=== PATIENT | female | born 1970 | race Caucasian/White ===

== ENCOUNTER 2020-02-03 11:33 | Outpatient (CLI) | payer OTHER, SELFPAY ==
--- NOTE | ~2020-02-03 | MM_ITS ---
EXAMINATION: MM screening nasir BI w darlene HISTORY: Screening TECHNIQUE: Craniocaudal and mediolateral oblique 3-D tomosynthesis images were obtained and synthetic 2-D images were generated. CAD analysis was submitted and interpreted. COMPARISON: Comparison to multiple prior studies sequentially, with oldest reviewed study dated 04/2013. BREAST PARENCHYMAL COMPOSITION: There are scattered areas of fibroglandular density. FINDINGS: There is no evidence of suspicious mass, calcification, or architectural distortion to sugg est malignancy in either breast. There has been no suspicious interval change. IMPRESSION: 1. No mammographic evidence of malignancy. 2. Recommend routine screening mammography in one year. BI-RADS Category 1: Negative Reviewed, dictated and finalized at location A. EACH ANALYST
== END 2020-02-03 11:34 | disposition home or self-care (01) ==
PROVIDERS: PCP Internal Medicine; Visit Provider Obstetrics & Gynecology
DX: Z12.31 Encounter for screening mammogram for malignant neoplasm of breast (principal)
CPT/HCPCS: 77063; 77067

== ENCOUNTER → 2020-06-22 00:37 | Outpatient (CLI) | payer OTHER, SELFPAY ==
[2020-06-22 20:53] LABS: SARS-CoV-2 RNA PCR Negative
== END ==
PROVIDERS: PCP Internal Medicine; Visit Provider Internal Medicine Gastroenterology
DX: Z01.812 Encounter for preprocedural laboratory examination (principal); Z20.822 Contact with and (suspected) exposure to COVID-19
CPT/HCPCS: C9803; U0003; U0005

== ENCOUNTER 2020-06-26 04:29 | Day surgery (SDC) | payer OTHER, SELFPAY ==
[2020-06-13 12:40] VITALS: BMI 30.8
[2020-06-26 06:55] VITALS: BP 151/112; PULSE 104; RESP 20; TEMP 36.4; O2SAT 97; BMI 35.4
[2020-06-26] MEDS: LACTATED RINGERS 1,000 ML 150 ML IV CONT (07:09)
--- NOTE | 2020-06-26 07:33 | WPDANESEPPF ---
Anes - Initial Pre Proc Eval Procedure: Operation Date: 06/26/20 08:00 Proposed Procedures p Esophagogastroduodenoscopy & Colonoscopy - Dago Mejia MD Date/Time: 06/26/20 07:33 Surgeon: Dago Mejia MD Pre Op Diagnosis: melena, GERD Patient Data Age: 50 Gender: F Height: 5 ft 5 in Weight: 96.4 kg Last Vital Signs Temp 97.6 F 06/26/20 06:55 Pulse 104 H 06/26/20 06:55 Resp 20 06/26/20 06:55 BP 151/112 H 06/26/20 06:55 Pulse Ox 97 06/26/20 06:55 Allergies Allergy/AdvReac Type Severity Reaction Status Date / Time erythromycin base Allergy Mild Unknown Verified 06/26/20 06:53 grass pollen Allergy Mild Unknown Verified 06/26/20 06:53 pollen extracts Allergy Mild Unknown Verified 06/26/20 06:53 Home Medications Medication Instructions Recorded Confirmed Type cetirizine 10 mg tablet 10 mg PO DAILY 09/28/19 06/26/20 History norethindrone 1 mg-ethinyl 1 tablet PO DAILY 09/28/19 06/26/20 History estradiol 20 mcg (21)-iron 75 mg (7) tablet lisinopril 10 mg tablet 10 mg PO DAILY #90 tablet 01/03/20 06/26/20 Rx pantoprazole 40 mg tablet,delayed 40 mg PO QAM #90 tablet 05/10/20 06/26/20 Rx release sod picosulf 10 mg-magnes 3.5 160 ml PO BID #160 ml 05/16/20 Rx gram-citric 12 gram/160 mL oral solution Patient hx anesthesia problems: none Family hx anesthesia problems: none PMFSH Past Medical History Medical History (Updated 06/26/20 @ 07:34 by Jl Sofia MD) GERD (gastroesophageal reflux disease) Hypertension Hypothyroidism Family History Family History Other Carcinoma of colon Family history of lung cancer Social History Social History Smoking status: Never smoker Alcohol intake: never Substance use: never Substance use type: does not use Living arrangements: with family Gender identity (if verbalized by the patient): Female Spiritual care concerns: No Anes - Eval Final PreProcedure Day of Procedure 06/26/20 07:33 Patient weight: obese Heart: regular rate and rhythm Lungs: clear to auscultation Airway: Mallampati scale class II Neurological: alert and oriented Last oral intake: >/= 8 hours ASA classification: III Emergent: no Anesthetic plan: proceed Anesthesia type and monitoring: general GIVS and standard monitoring Informed Consent: The patient's anesthetic plan and its attendant risks and benefits were discussed with the patient/family/POA. Questions were solicited and answers provided to the satisfaction of the patient/family/POA.
--- NOTE | 2020-06-26 07:53 | PM.HPGS ---
History of Present Illness History of Present Illness Consent: Risks, benefits, and alternatives have been discussed and questions answered. Patient agrees to proceed with procedure. Chief complaint: melena, GERD Narrative: Mandi Carver is a 50 year old female with gerd (never had egd) and also needs screening colonoscopy (maternal grandmother with colon ca) Review of Systems Constitutional: Constitutional: Denies headache(s) and Denies weakness Eyes: Eyes: Denies blurry vision ENT: Reports Normal hearing present, Denies headache(s) and Denies neck pain Cardiovascular: Cardiovascular: Denies chest pain and Denies dyspnea Respiratory: Respiratory: Denies dyspnea Gastrointestinal: Gastrointestinal: Reports no additional gastrointestinal complaints Genitourinary: Genitourinary: Denies dysuria Musculoskeletal: Musculoskeletal: Denies neck pain Integumentary/Breasts: Skin/Breast: Denies dry skin Neurologic: Reports Normal hearing present, Denies headache(s) and Denies weakness Psychiatric: Psychiatric: Denies anxiety Endocrine: Endocrine: Denies change in body appearance Hematologic/Lymphatic: Hematologic/Lymphatic: Denies easy bleeding Allergic/Immunologic: Allergic/Immunologic: Denies urticaria PMFSH Past Medical History Medical History (Updated 06/26/20 @ 07:34 by Jl Sofia MD) GERD (gastroesophageal reflux disease) Hypertension Hypothyroidism Family History Family History Other Carcinoma of colon Family history of lung cancer Social History Social History Smoking status: Never smoker Alcohol intake: never Substance use: never Substance use type: does not use Living arrangements: with family Gender identity (if verbalized by the patient): Female Spiritual care concerns: No Meds Home Medications and Allergies Home Medications Medication Instructions Recorded Confirmed Type cetirizine 10 mg tablet 10 mg PO DAILY 09/28/19 06/26/20 History norethindrone 1 mg-ethinyl 1 tablet PO DAILY 09/28/19 06/26/20 History estradiol 20 mcg (21)-iron 75 mg (7) tablet lisinopril 10 mg tablet 10 mg PO DAILY #90 tablet 01/03/20 06/26/20 Rx pantoprazole 40 mg tablet,delayed 40 mg PO QAM #90 tablet 05/10/20 06/26/20 Rx release sod picosulf 10 mg-magnes 3.5 160 ml PO BID #160 ml 05/16/20 Rx gram-citric 12 gram/160 mL oral solution Allergies Allergy/AdvReac Type Severity Reaction Status Date / Time erythromycin base Allergy Mild Unknown Verified 06/26/20 06:53 grass pollen Allergy Mild Unknown Verified 06/26/20 06:53 pollen extracts Allergy Mild Unknown Verified 06/26/20 06:53 Vital Signs Vital Signs - 24 hr 06/26/20 06:55 Temperature 97.6 F Pulse Rate 104 H Respiratory Rate 20 Blood Pressure 151/112 H Pulse Oximetry 97 Exam Const: General: comfortable and no acute distress HENMT: General nose exam: Normal nares present Eyes: General: appearance normal, both eyes and all related structures Neck: Neck: no JVD Resp: Auscultation: clear to auscultation bilaterally Cardio: Rate: regular rate Rhythm: regular rhythm GI: Inspection: non-distended GI Palp: Yes Soft to palpation Skin: General skin exam: normal color Neuro: General: gait normal Speech: normal speech Extrem: General: normal to inspection Psych: Mental Status: mental status grossly normal Assessment and Plan Assessment and plan (1) Esophageal reflux disease: Code(s): K21.9 - Gastro-esophageal reflux disease without esophagitis Status: Acute Assessment and Plan: egd with bx (2) Family hx of colon cancer: Code(s): Z80.0 - Family history of malignant neoplasm of digestive organs Status: Acute Assessment and Plan: colonoscopy
[2020-06-26] MEDS: BENZOCAINE (*SP) 60 ML SPRAY CAN (HURRICAINE) 1 SPRAY MUCOUS MEM (08:02)
[2020-06-26 08:27] VITALS: BP 128/88; PULSE 96; RESP 37; O2SAT 99
[2020-06-26 08:37] VITALS: BP 146/98; PULSE 88; RESP 18; O2SAT 100
[2020-06-26 08:47] VITALS: BP 147/106; PULSE 94; RESP 20; O2SAT 100
--- NOTE | 2020-06-26 08:51 | SUR.PHASEII ---
Notified Dr. Sofia (anesthesiologist) of blood pressure 147/106. Pt states she took her lisinopril last night and does not monitor blood pressure at home. Orders to instruct pt to follow up with primary care physician.
== END 2020-06-26 08:58 | disposition home or self-care (01) ==
PROVIDERS: PCP Internal Medicine; Visit Provider Internal Medicine Gastroenterology
PROC: 0DJ08ZZ Inspection of Upper Intestinal Tract, Via Natural or Artificial Opening Endoscopic (ICD-10-PCS; CPT 43235; principal; 2020-06-26 08:00)
DX: Z12.11 Encounter for screening for malignant neoplasm of colon (principal); K57.30 Diverticulosis of large intestine without perforation or abscess without bleeding; K64.8 Other hemorrhoids; K29.50 Unspecified chronic gastritis without bleeding; K21.9 Gastro-esophageal reflux disease without esophagitis; Z80.0 Family history of malignant neoplasm of digestive organs; I10 Essential (primary) hypertension; E03.9 Hypothyroidism, unspecified; E66.9 Obesity, unspecified; Z68.35 Body mass index [BMI] 35.0-35.9, adult
CPT/HCPCS: 43239; G0121; 88305; 88342; C9803; J2704; J7120; U0003; U0005

== ENCOUNTER 2020-10-11 13:47 | Outpatient (CLI) | payer OTHER, SELFPAY ==
--- NOTE | 2020-11-06 21:46 | WPDHOMESLEEP ---
Sleep Study - Home Unattended Date of Study: 10/11/20 Ordering Provider: Lavell Loera PA-C Interpreting Provider: Yesenia Sampson MD Home Sleep Study Type: Apnea Link Air Height: 1.65 m Weight: 90.718 kg Body Mass Index: 33.3 Neck Circumference (inches): 15 [place]: 11 Reason for Sleep Study hypersomnia Sleep History Mandi Carver is a 50 year old female who has excessive snoring which has gotten worse over time. Her sleeps in a separate room due to her snoring. She had a colonoscopy recently was told by the anesthesiologist that the snoring was severe and that the patient needed a sleep study. She wakes up throughout the night and has excessive daytime sleepiness she does not awaken from sleep feeling short of breath. She occasionally awakens at night with heartburn, belching or coughing. She constantly snores loudly and constantly has trouble sleeping with a cold. She does not wake up gasping for breath at night. Occasionally she sweats excessively at night. She does not notice her heart pounding or beating irregularly at night. She occasionally falls asleep during the day, never involuntarily and never while driving. She does not have loss of muscle tone with strong emotion. She occasionally has daytime difficulties due to excessive sleepiness. She is an accountant bookkeeper. She does not feel paralyzed on waking or falling asleep and does not have vivid dreamlike scenes upon awakening or falling asleep. she does not feel afraid to go to sleep. She rarely has nightmares. She frequently remembers her dreams. She frequently has racing thoughts. She rarely feels sad or depressed. She occasionally feels anxious. She does not have muscular tension and does not notice parts of her body jerking. She rarely kicks at night. She does not have crawling and aching feelings in her legs or any kind of leg pain at night. She denies morning jaw pain, does not grind her teeth during sleep, is not bothered by pain during the day or awakened by pain at night. She occasionally wakes up feeling stiff in the morning, never with sore achy muscles or pain in the neck and spine. She has fatigue and headaches. Normal bedtime 9:00 p.m. to 10:00 p.m., immediately falling asleep on week days typically waking 4-5 times at night to reposition and returns to sleep within minutes. She wakes in the morning between 415 and 5:00 a.m. to go to work. She estimates getting 6-7 hours of sleep during the week. On the weekends, she also goes to bed between 9:00 p.m. and 10:00 p.m., falls asleep quickly, sleeps longer, wakes between 7 and 8:00 a.m.. She does take naps on the weekends. A short nap may be refreshing. She is usually drowsy in the morning for an hour. She feels better in the late morning compared to other times of day. Habits: Never smoked tobacco. Caffeine 1 soda per day. No alcohol or recreational drugs. [facility] Past Medical History Medical History GERD (gastroesophageal reflux disease) Hypertension Hypothyroidism Family History Family History Other Carcinoma of colon Family history of lung cancer Social History Social History Smoking status: Never smoker Alcohol intake: never Substance use: never Substance use type: does not use Gender identity (if verbalized by the patient): Female Spiritual care concerns: No Medications Home Medications Medication Instructions Recorded Confirmed Type cetirizine 10 mg tablet 10 mg PO DAILY 09/28/19 09/05/20 History norethindrone 1 mg-ethinyl 1 tablet PO DAILY 09/28/19 09/05/20 History estradiol 20 mcg (21)-iron 75 mg (7) tablet pantoprazole 40 mg tablet,delayed 40 mg PO QAM #90 tablet 05/10/20 09/05/20 Rx release lisinopril 10 mg tablet 10 mg PO DAILY #90 tablet 09/04/20 09/04/20 Rx Synthroid
[2020-11-06 21:50] VITALS: BMI 33.3
== END 2020-10-14 14:04 | disposition home or self-care (01) ==
LOC: ANHCSM 10-14 13:47
PROVIDERS: PCP Internal Medicine; Visit Provider Physician Assistant
DX: G47.33 Obstructive sleep apnea (adult) (pediatric) (principal)
CPT/HCPCS: 95806

== ENCOUNTER 2021-02-03 15:07 | Outpatient (CLI) | payer OTHER, SELFPAY ==
--- NOTE | ~2021-02-03 | MM_ITS ---
EXAMINATION: MM screening nasir BI w darlene HISTORY: Screening TECHNIQUE: Craniocaudal and mediolateral oblique 3-D tomosynthesis images were obtained and synthetic 2-D images were generated. CAD analysis was submitted and interpreted. COMPARISON: Comparison to multiple prior studies sequentially, with oldest reviewed study dated 10/08. BREAST PARENCHYMAL COMPOSITION: There are scattered areas of fibroglandular density. FINDINGS: There is no evidence of suspicious mass, calcification, or architectural distortion to sugg est malignancy in either breast. There has been no suspicious interval change. IMPRESSION: 1. No mammographic evidence of malignancy. 2. Recommend routine screening mammography in one year. BI-RADS Category 1: Negative Reviewed, dictated and finalized at location A. ORIAL DIRECTOR
== END 2021-02-03 15:08 | disposition home or self-care (01) ==
LOC: ANHIMG 15:09
PROVIDERS: PCP Internal Medicine; Visit Provider Student in an Organized Health Care Education/Training Program
DX: Z12.31 Encounter for screening mammogram for malignant neoplasm of breast (principal)
CPT/HCPCS: 77063; 77067

== ENCOUNTER 2021-04-25 07:45 | Outpatient (CLI) | payer OTHER, SELFPAY ==
--- NOTE | 2021-05-04 21:25 | WPDSLEEPSTUD ---
Sleep Study Date of Study: 04/25/21 Ordering Provider: Tyson Randhawa APRN Interpreting Physician: Nancy Kendrick DO Sleep Study Type: CPAP Titration Height: 1.65 m Weight: 97.522 kg Body Mass Index: 35.7 Neck Circumference (inches): 14 [place]: 11 Reason for Sleep Study The home sleep test using ApneaLink on October 11, 2020 showed severe obstructive sleep apnea with an apnea-hypopnea index of 44, mainly obstructive events 89%, desaturation to 76% and 10 minute or 2% of the study spent below 88%. Sleep History Mandi Carver is a 51 year old female who has excessive snoring which has gotten worse over time. Her sleeps in a separate room due to her snoring. She had a colonoscopy recently was told by the anesthesiologist that the snoring was severe and that the patient needed a sleep study. She wakes up throughout the night and has excessive daytime sleepiness she does not awaken from sleep feeling short of breath. She occasionally awakens at night with heartburn, belching or coughing. She constantly snores loudly and constantly has trouble sleeping with a cold. She does not wake up gasping for breath at night. Occasionally she sweats excessively at night. She does not notice her heart pounding or beating irregularly at night. She occasionally falls asleep during the day, never involuntarily and never while driving. She does not have loss of muscle tone with strong emotion. She occasionally has daytime difficulties due to excessive sleepiness. She is an inventory accountant. She does not feel paralyzed on waking or falling asleep and does not have vivid dreamlike scenes upon awakening or falling asleep. she does not feel afraid to go to sleep. She rarely has nightmares. She frequently remembers her dreams. She frequently has racing thoughts. She rarely feels sad or depressed. She occasionally feels anxious. She does not have muscular tension and does not notice parts of her body jerking. She rarely kicks at night. She does not have crawling and aching feelings in her legs or any kind of leg pain at night. She denies morning jaw pain, does not grind her teeth during sleep, is not bothered by pain during the day or awakened by pain at night. She occasionally wakes up feeling stiff in the morning, never with sore achy muscles or pain in the neck and spine. She has fatigue and headaches. Normal bedtime 9:00 p.m. to 10:00 p.m., immediately falling asleep on week days typically waking 4-5 times at night to reposition and returns to sleep within minutes. She wakes in the morning between 415 and 5:00 a.m. to go to work. She estimates getting 6-7 hours of sleep during the week. On the weekends, she also goes to bed between 9:00 p.m. and 10:00 p.m., falls asleep quickly, sleeps longer, wakes between 7 and 8:00 a.m.. She does take naps on the weekends. A short nap may be refreshing. She is usually drowsy in the morning for an hour. She feels better in the late morning compared to other times of day. Habits: Never smoked tobacco. Caffeine 1 soda per day. No alcohol or recreational drugs. [facility] Past Medical History Medical History GERD (gastroesophageal reflux disease) Hypertension Hypothyroidism Family History Family History Other Carcinoma of colon Family history of lung cancer Social History Social History Smoking status: Never smoker Alcohol intake: never Substance use: never Substance use type: does not use Gender identity (if verbalized by the patient): Female Spiritual care concerns: No Medications Home Medications Medication Instructions Recorded Confirmed Type cetirizine 10 mg tablet 10 mg PO DAILY 09/28/19 03/28/21 History norethindrone 1 mg-ethinyl 1 tablet PO DAILY 09/28/19 03/28/21 History estradiol 20 mcg (21)-ir
[2021-05-05 12:31] VITALS: BMI 35.7
== END 2021-04-26 08:05 | disposition home or self-care (01) ==
LOC: ANHCSM 07:46
PROVIDERS: PCP Internal Medicine; Visit Provider Nurse Practitioner Family
DX: G47.33 Obstructive sleep apnea (adult) (pediatric) (principal)
CPT/HCPCS: 95811

== ENCOUNTER 2022-02-07 09:54 | Outpatient (CLI) | payer OTHER, SELFPAY ==
--- NOTE | ~2022-02-07 | MM_ITS ---
EXAMINATION: MM screening nasir BI w darlene HISTORY: Screening TECHNIQUE: Craniocaudal and mediolateral oblique 3-D tomosynthesis images were obtained and synthetic 2-D images were generated. CAD analysis was submitted and interpreted. COMPARISON: Comparison to multiple prior studies sequentially, with oldest reviewed study dated 10/17. BREAST PARENCHYMAL COMPOSITION: There are scattered areas of fibroglandular density. FINDINGS: There is no evidence of suspicious mass, calcification, or architectural distortion to sugg est malignancy in either breast. There has been no suspicious interval change. IMPRESSION: 1. No mammographic evidence of malignancy. 2. Recommend routine screening mammography in one year. BI-RADS Category 1: Negative Reviewed, dictated and finalized at location B. STAGE CONSULTANT
== END 2022-02-07 09:55 | disposition home or self-care (01) ==
LOC: ANHIMG 09:57
PROVIDERS: PCP Internal Medicine; Visit Provider Obstetrics & Gynecology
DX: Z12.31 Encounter for screening mammogram for malignant neoplasm of breast (principal)
CPT/HCPCS: 77063; 77067

== ENCOUNTER 2022-08-12 17:48 | Outpatient (CLI) | payer OTHER, SELFPAY ==
--- NOTE | 2022-08-13 07:50 | PCRCNOTE ---
Paper documentation exists on this patient due to [facility] downtime on 08/12/22 from [id number] TO [id number]
--- NOTE | 2022-08-13 12:39 | WPDPFTINT ---
PFT Procedure Performed PFT Procedure Performed Spirometry with Pre/Post Bronchodilator Plethysmography (Lung Vol) Diffusing Cap (DLCO) Flow Vol Loop PFT Interpretation Lung volumes were measured with the body plethysmography method. Lung volumes are unremarkable. Spirometry showed normal expiratory flow rates and a normal FEV1 to FVC ratio of 77%. Following administration of a bronchodilator there was no significant increase in the expiratory flow rates. Lung diffusion capacity is within the normal range at 85% predicted. The flow-volume loop is unremarkable. Impression: Spirometry, lung volumes, and lung diffusion capacity all within the normal range.
== END 2022-08-12 17:49 | disposition home or self-care (01) ==
LOC: ANHPFT 17:49
PROVIDERS: PCP Internal Medicine; Visit Provider Internal Medicine Critical Care Medicine
DX: J45.909 Unspecified asthma, uncomplicated (principal)
CPT/HCPCS: 94060; 94726; 94729

== ENCOUNTER 2023-03-20 10:20 | Outpatient (CLI) | payer OTHER, SELFPAY ==
--- NOTE | ~2023-03-20 | MM_ITS ---
EXAMINATION: MM screening [facility] BI w darlene HISTORY: Screening mammogram TECHNIQUE: Craniocaudal and mediolateral oblique 3-D tomosynthesis images were obtained and synthetic 2-D images were generated. CAD analysis was submitted and interpreted. COMPARISON: 02/07/2022, 02/03/2021, 02/03/2020 BREAST PARENCHYMAL COMPOSITION: There are scattered areas of fibroglandular density. FINDINGS: No suspicious mass, calcification, or architectural distortion are identified in either murphy ast to suggest malignancy. There has been no suspicious interval change. IMPRESSION: 1. No mammographic evidence of malignancy. 2. Recommend routine screening mammography in one year. BI-RADS Category 1: Negative Reviewed, dictated and finalized at location A. S ASSISTANTS AND SALESPERSONS
== END 2023-03-20 10:21 | disposition home or self-care (01) ==
LOC: ANHIMG 10:23
PROVIDERS: PCP Internal Medicine; Visit Provider Obstetrics & Gynecology
DX: Z12.31 Encounter for screening mammogram for malignant neoplasm of breast (principal)
CPT/HCPCS: 77063; 77067

== ENCOUNTER 2024-03-29 08:29 | Outpatient (CLI) | payer OTHER, SELFPAY ==
--- NOTE | ~2024-03-29 | MM_ITS ---
EXAMINATION: MM screening nasir BI w darlene HISTORY: Screening TECHNIQUE: Craniocaudal and mediolateral oblique 3-D tomosynthesis images were obtained and synthetic 2-D images were generated. CAD analysis was submitted and interpreted. COMPARISON: Comparison to multiple prior studies sequentially, with oldest reviewed study dated 07/2020. BREAST PARENCHYMAL COMPOSITION: Not dense: There are scattered areas of fibroglandular density. FINDINGS: Stable asymmetries lateral aspect of the left breast on CC view. There is no evidence of camara spicious mass, calcification, or architectural distortion to suggest malignancy in either breast. The re has been no suspicious interval change. IMPRESSION: 1. No mammographic evidence of malignancy. 2. Recommend routine screening mammography in one year. BI-RADS Category 1: Negative Reviewed, dictated and finalized at location A. [employer] TESTER
--- OUTSIDE RECORDS SUMMARY | 2024-03-29 08:46 | XMS_ITS | Referral Summary ---
Author Organization [facility] [address] Address [address] [place] [address] Care Team Providers Care Boring Machine Set Up Operator Name Role Phone Ruslan Ibarra MD Primary Care Provider [phone]- [phone] Allergies No known active allergies Social History Tobacco Use Types Packs/Day Years Used Date Smoking Tobacco: Never Assessed Personal Safety Answer Date Recorded Getting School Help Needed Not on file 05/14 Comments Unknown Sex and Gender Information Value Date Recorded Sex Assigned at Not on file Legal Sex Female 3:40 PM VASCULAR SURGERY PHYSICIAN Gender Identity Not on file Sexual Orientation Not on file Plan of Treatment Not on file Insurance [facility] Care Teams Boring Machine Set Up Operator Relationship Specialty Start Date End Date Ruslan Ibarra MD [address] [facility] [address] [place] [address] PCP - General Internal Medicine 01/12/19
--- OUTSIDE RECORDS SUMMARY | 2024-03-29 08:46 | XMS_ITS | Clinical Summary ---
Author Organization [facility] [address] Address [address] [place] [address] Care Team Providers Care Tribal Council Member Name Role Phone Ruslan Ibarra MD Primary Care Provider [phone]- [phone] Allergies No known active allergies Social History Tobacco Use Types Packs/Day Years Used Date Smoking Tobacco: Never Assessed Personal Safety Answer Date Recorded Getting School Help Needed Not on file 05/14 Comments Unknown Sex and Gender Information Value Date Recorded Sex Assigned at Not on file Legal Sex Female 3:40 PM WEALTH MANAGEMENT CONSULTANT Gender Identity Not on file Sexual Orientation Not on file Plan of Treatment Not on file Insurance [facility] Care Teams Tribal Council Member Relationship Specialty Start Date End Date Ruslan Ibarra MD [address] [facility] [address] [place] [address] PCP - General Internal Medicine 01/12/19
--- OUTSIDE RECORDS SUMMARY | 2024-03-29 08:46 | XMS_ITS | Clinical Summary ---
Author Organization [facility] Address [address] [facility] [address] [place] [address] Phone Care Team Providers Care Pet Training Instructor Name Role Phone Unavailable Primary Care Provider Unavailabl e Allergies Active Allergy Reactions Criticality Noted Date Comments Erythromycin Unknown Medications MINASTRIN 24 FE 1-20 MG-MCG(24) Chewable Tablet 3 02/26/2015 Act arnulfo promethazine-dex tromethorphan (PROMETHAZINE-DM ) 6.25-15 MG/5ML SyrupIndications :URI (upper respiratory infection) Take 5 mL by mouth every 4 hours as needed for Cough. 240 mL 1 03/22/2015 Active Active Problems No known active problems Immunizations Immunization Administration Dates Next Due Influenza Vaccine greater than 3 yrs 03/01/2012 Influenza Vaccine, Quadrivalent, PF 12/29/2014 Tetanus Toxoid, Unspecified Formulation 03/01/19 09 Family History Medical History Relation Name Comments No Known Problems Brother No Known Problems Father No Known Problems Mother No Known Problems Sister Relation Name Status Comments Brother Alive Father Alive Mother Alive Sister Alive Social History Tobacco Use Types Packs/Day Years Used Date Smoking Tobacco: Never Alcohol Use Standard Drinks/Week Comments No 0 (1 standard drink = 0.6 oz pur e alcohol) Comments No Sex and Gender Information Value Date Recorded Sex Assigned at Not on file Legal Sex Female 8:51 PM CDT Gender Identity Not on file Sexual Orientation Not on file Last Filed Vital Signs Vital Sign Reading Time Taken Comments Blood Pressure 110/60 03/22/2015 1:25 PM COMB WINDER Pulse - - Temperature 36.4 ??C (97.6 ??F) 03/22/2015 1:25 PM CS T Respiratory Rate - - Oxygen Saturation - - Inhaled Oxygen Concentration - - Weight 90.7 kg (200 lb) 03/22/2015 1:25 PM COMB WINDER Height 165.1 cm (5' 5 ) 03/22/2015 1:25 PM COMB WINDER Body Mass Index 33.28 03/22/2015 1:25 PM COMB WINDER Plan of Treatment Health Maintenance Due Date Last Done Comments Hepatitis C Virus (HCV) Screening 1972 TdaP Immunization 1972 Hepatitis B Immunization (1 of 3 - 19+ 3-dose series) 1991 Pap Smear 1993 Cervical Cancer Screening (CCS) 2002 HPV/Cotest 2002 Colonoscopy 2017 Colorectal Cancer Screening 2017 Cologuard 2022 Immunochemical Fecal Occult Blood 2022 Mammogram 2022 Pneumococcal Immunization (5 0+ years) (1 of 1 - PCV) 2022 Zoster Immunization (1 of 2) 2022 Influenza Immunization (#1) 10/31/202312/01, 03/01/2012 SARS-COV-2 Immunization ( - season) 2023 Respiratory Syncytial Virus (RSV) Immunization (Adult) (1 - 1-dose 75+ series) 2047 Meningococcal Immunization (ACWY) Aged Out No longer eligible b ased on patient's age to complete this topic Pneumococcal Immunization Combined Aged Out No longer eligible b ased on patient's age to complete this topic Rotavirus Immunization Aged Out No lo nger eligible based on patient's age to complete this topic Insurance [employer] [facility]
== END 2024-03-29 08:30 | disposition home or self-care (01) ==
LOC: ANHIMG 08:31
PROVIDERS: PCP Nurse Practitioner; Visit Provider Obstetrics & Gynecology
DX: Z12.31 Encounter for screening mammogram for malignant neoplasm of breast (principal)
CPT/HCPCS: 77063; 77067

== ENCOUNTER 2024-11-18 10:08 | Emergency (ER) | payer OTHER, SELFPAY ==
--- NOTE | ~2024-11-18 | XR_ITS ---
Examination: XR chest 2V Clinical History: rt sided cp, sob Comparison: None Technique: PA and Lateral Findings: Cardiomediastinal silhouette normal size and configuration. Lungs clear. No acute bony abnormality. Mild osteopenia. IMPRESSION: 1. No acute cardiopulmonary findings. Reviewed, dictated and finalized at location R.
--- NOTE | ~2024-11-18 | US_ITS ---
EXAMINATION: US venous doppler LE RT, 11/18/2024 14:09 CDT HISTORY: posterior knee pain Comparison: None Technique: Oh-scale and color Doppler images were attempted of the lower saphenofemoral junction, common femoral vein,superficial femoral vein, proximal deep femoral vein, proximal deep femoral vein, popliteal vein and posterior tibial veins.Limited study Findings: Deep Venous System:Normal flow, augmentation and compressibility. No echogenic thrombus identified. The contralateral saphenofemoral junction appears unremarkable. Superficial Venous SystemNo superficial thrombophlebitis. Soft tissues: Soft tissues are unremarkable. Impression: Negative for DVT. Reviewed, dictated and finalized at location A. Impression: Negative for DVT.
--- NOTE | ~2024-11-18 | CT_ITS ---
EXAMINATION: CTA chest PE protocol, 11/18/2024 16:10 CDT HISTORY: ddimer, right sided CP COMPARISON: No comparisons available. TECHNIQUE: CTA examination is obtained with contrast CTA examination technique is performed with arterial phase of contrast-enhancement. 3-D reconstruction with thin MIP axial and MPR coronal imaging is provided Isovue 300, 92cc injected IV. One or more of the following dose reduction techniques were used: automated exposure control, adjustment of the mA and/or kV according to patient size, use of iterative reconstruction technique. FINDINGS: No significant coronary calcification is present ([id number]) LUNGS: Contrast bolus limited, no pulmonary embolism identified in the central vessels. No tracheomalacia or bronchiectasis. HEART AND PERICARDIUM: Within normal limits. AORTA: Normal caliber aorta.. PULMONARY ARTERIES: No pulmonary embolism ADENOPATHY/MEDIASTINUM: None. LIMITED VIEWS OF THE ABDOMEN: Cholelithiasis. OSSEOUS STRUCTURES: No acute osseous abnormality. OVERLYING SOFT TISSUES: Unremarkable. THYROID: The thyroid is unremarkable. IMPRESSION: Limited study. No gross pulmonary embolism Reviewed, dictated and finalized at location A.
[2024-11-18 10:11] VITALS: BP 152/85; PULSE 77; RESP 18; TEMP 36.6; O2SAT 100
--- NOTE | 2024-11-18 10:14 | ECG_ITS ---
Test Date: 2024-11-18 10:18:29 Measurements Intervals Early Rate: 78 P: 16 AL: 148 QRS: -7 QRSD: 90 T: 15 QT: 374 QTc: 426 Interpretive Statements SINUS RHYTHM NORMAL ELECTROCARDIOGRAM No previous ECG available for comparison Electronically Signed On 11-19-2024 08:03:24 CDT by Chon Ghotra M.D.
[2024-11-18 10:27] LABS: Hematocrit 36.5 % (37.0-47.0); Hemoglobin 11.4 g/dL (12.0-15.0); Immature Granulocyte Percent A 0.3 % (0-0.5); Lymphocytes Absolute Auto 2.18 K/mm3 (0.9-3.2); Mean Corpuscular HGB Conc 31.2 g/dl (32-36); Mean Corpuscular Hemoglobin 26.5 pg (26-34); Mean Corpuscular Volume 84.7 fl (80-100); Nucleated Red Blood Cells Absolute Auto 0.000 K/mm3 (0.0-0.012); Nucleated Red Blood Cells Perc 0.0 % (0.0-0.2); Platelet Count Result 340 k/mm3 (150-375); Red Blood Count 4.31 M/mm3 (4.2-5.4); White Blood Count 7.6 K/mm3 (4.5-10.0)
[2024-11-18 10:38] LABS: INR 1.0; Partial Thromboplastin Time 27.0 Seconds (22.3-36.8); Prothrombin Time 13.2 Seconds (11.1-14.7)
[2024-11-18 10:48] LABS: Alanine Aminotransferase 19 U/L (6-35); Albumin Level 4.2 g/dL (3.5-5.1); Alkaline Phosphatase 96 U/L (38-126); Anion Gap 8 mmol/L (4-12); Aspartate Amino Transferase 29 U/L (14-36); Bilirubin,Total 0.5 mg/dL (0.2-1.3); Blood Urea Nitrogen 17 mg/dL (7-17); Calcium 8.7 mg/dL (8.4-10.2); Carbon Dioxide 22 mmol/L (22-30); Chloride 106 mmol/L (98-107); Estimated CRCL calculation 80 ml/min; Estimated Glomerular Filt Rate > 60; Glucose 96 mg/dL (65-110); Lipase 88 U/L (23-300); Potassium 4.3 mmol/L (3.4-5.0); Sodium 136 mmol/L (137-145); Total Protein 7.8 g/dL (6.3-8.2)
[2024-11-18 10:59] LABS: Troponin I < 0.012 ng/mL (0.000-0.034)
[2024-11-18] MEDS: ASPIRIN 81 MG CHEWABLE TABLET 324 MG PO (11:37)
[2024-11-18 11:39] VITALS: BP 153/90; PULSE 75; RESP 13; O2SAT 100
[2024-11-18 11:54] VITALS: BP 149/90; PULSE 66; PULSE 69; RESP 18; O2SAT 100
--- OUTSIDE RECORDS SUMMARY | 2024-11-18 13:25 | XMS_ITS | Clinical Summary ---
Author Organization [facility] Address [address] [facility] [address] [place] [address] Phone Care Team Providers Care Community Representative Name Role Phone Unavailable Primary Care Provider [...] Comments Blood Pressure 110/60 03/22/2015 1:25 PM [employer] Pulse - - Temperature 36.4 C (97.6 F) 03/22/2015 1:25 PM [employer] Respiratory Rate - - Oxygen Saturation - - Inhaled Oxygen Concentration - - Weight 90.7 kg (200 lb) 03/22/2015 1:25 PM [employer] Height 165.1 cm (5' 5) 03/22/2015 1:25 PM [employer] Body Mass Index 33.28 03/22/2015 1:25 PM [employer] Plan of Treatment Health Maintenance Due Date Last Done Comments Hepatitis C Virus (HCV) Screening 1972 TdaP Immunization 1972 Hepatitis B Immunization (1 of 3 - 19+ 3-dose series) 1991 Pap Smear 1993 Cervical Cancer Screening (CCS) 2002 HPV/Cotest 2002 Cologuard 2017 Colonoscopy 2017 Colorectal Cancer Screening 2017 Immunochemical Fecal Occult Blood 2017 Pneumococcal Immunization (5 0+ years) (1 of 1 - PCV) 2022 Zoster Immunization (1 of 2) 2022 SARS-COV-2 Immunization ( - 2023- season) 2023 Influenza Immunization (#1) 10/30/202412/01, 03/01/2012 Respiratory Syncytial Virus (RSV) Immunization (Adult) (1 - 1-dose 75+ series) 2047 Human Papillomavirus (HPV) Immunization Aged Out No longer eligible b ased on patient's age to complete this topic Meningococcal Immunization (ACWY) Aged Out No longer eligible b ased on patient's age to complete this topic Rotavirus Immunization Aged Out No lo nger eligible based on patient's age to complete this topic Insurance [employer] [facility]
--- NOTE | 2024-11-18 13:28 | ECG_ITS ---
Test Date: 2024-11-18 13:40:34 Measurements Intervals [place] Rate: 71 P: 18 DE: 148 QRS: 4 QRSD: 89 T: 3 QT: 395 QTc: 429 Interpretive Statements SINUS RHYTHM NORMAL ELECTROCARDIOGRAM Compared to ECG 11/18/2024 10:18:29 No significant changes Electronically Signed On 11-19-2024 08:14:31 CDT by Chon Ghotra M.D.
--- NOTE | 2024-11-18 14:00 | ED.GENADULT ---
HPI - General Adult General Chief complaint: Chest Pain Stated complaint: pain in right leg and pain with inspiration Time Seen by Provider: 11/18/24 13:18 History of Present Illness HPI narrative: 54-year-old female presents to the emergency department for evaluation for complaints of right-sided posterior knee pain and an episode of right-sided chest pain that occurred at the gym. Patient reports she is having posterior knee pain yesterday when she woke up this morning the knee pain had improved. Patient went to the gym this morning and had onset of right-sided chest pain chest tightness that did radiate to the right arm. Patient reports the symptoms lasted approximately 2 hours but then resolved. Patient reports she frequently does go to the gym and has never had exertional chest pain or shortness of breath. Patient denies any prior history of coronary artery disease. Patient denies any prior history of PE or DVT. Patient is on control. Related Data Home Medications ?Medication ?Instructions ?Recorded ?Confirmed ?Last Taken ?Type cetirizine 10 mg tablet (Zyrtec) 10 mg PO DAILY 09/28/19 07/28/24 06/25/20 History norethindrone 1 mg-ethinyl 1 tablet PO DAILY 09/28/19 07/28/24 06/25/20 History estradiol 20 mcg (21)-iron 75 mg (7) tablet (Loestrin Fe 03/20 (28-Day)) sertraline 50 mg tablet 100 mg PO DAILY 07/28/24 07/28/24 Unknown History Allergies Allergy/AdvReac Type Severity Reaction Status Date / Time erythromycin base Allergy Mild Unknown Verified 07/28/24 13:07 grass pollen Allergy Mild Unknown Verified 07/28/24 13:07 pollen extracts Allergy Mild Unknown Verified 07/28/24 13:07 Review of Systems Review of Systems: All systems reviewed & are unremarkable except as noted in HPI and below PMFSH Past Medical History Medical History (Updated 11/18/24 @ 16:57 by Garry Rodriguez MD) Hypertension Wheezing Viral upper respiratory tract infection Pure hypercholesterolemia Palpitation B12 deficiency GERD (gastroesophageal reflux disease) Hypothyroidism Family History Family History (Updated 07/28/24 @ 13:10 by Atiya Martinez Frandy) Father Hyperlipidemia Mother No problems noted. Sibling No problems noted. Other Carcinoma of colon Family history of lung cancer Social History Social History (Updated 07/28/24 @ 13:11 by Atiya Martinez [facility]) Smoking status: Never smoker Second hand tobacco smoke exposure: Yes Alcohol intake: current Substance use: never Substance use type: does not use Do You Feel Safe in your Home?: Yes Lack of Transportation: No Lack of Food: Never True Current Housing: I Have Housing Concerned About Future Housing: No Difficulty Paying Gas/Electric Bills: No Difficulty Paying for Meds: No Currently Unemployed: No Education: Master's Degree or Higher Difficulty w/ Childcare or Family Care: No Living arrangements: with family Occupation/Education: occupation 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 HEAD: normocephalic, atraumatic. EYES: PERRLA/EOMI, conjunctivae clear. NOSE: Normal no drainage EARS:TMS clear with good light reflex. THROAT: Pharynx clear, no exudate. NECK: Supple. No adenopathy, no masses. RESPIRATORY: Airway patent, respirations nonlabored. Clear to auscultation bilaterally, no rales, rhonchi, wheezing. CARDIOVASCULAR: Regular rate and rhythm without murmurs rubs or gallops. ABDOMINAL: Soft, nontender, nondistended, normal bowel sounds MUSCULOSKELETAL: Tenderness to posterior knee right. No deformity, no abscess, no cellulitis NEURO: Alert. Cranial nerves II through XII intact. Good gait. Good coordination SKIN: Warm, dry. Normal Color Course Vital Signs Vital signs: Vital Signs Temperature 97.9 F 11/18/24 10:11 Pulse Rate 77 11/18/24 10:11 Respiratory Rate 18 11/18/24 10:11 Blood Pressure 152/85 H 11/18/24 10:11 Pulse Oximetry 100 11/18/24 10:11 Oxygen Delivery Room Air 11/18/24 10:11 Temperature 97.9 F 11/18/24 10:11 Pulse Rate 87 11/18/24 17:24 Respiratory Rate 20 11/18/24 17:24 Blood Pressure 154/94 H 11/18/24 17:24 Pulse Oximetry 100 11/18/24 17:24 Oxygen Delivery Room Air 11/18/24 11:44 Medical Decision Making MDM Narrative Medical decision making narrative: 54-year-old female presents to the emergency department for evaluation for right knee pain and right-sided chest pain. EKG showed normal sinus rhythm with no evidence of acute STEMI. Patient is currently afebrile with no leukocytosis hemoglobin 11.4. Patient had a elevated D-dimer 2.59 but CTA showed no evidence of pulmonary embolism and ultrasound was negative for DVT. INR is 1.0. Patient had negative serial troponins. Patient was asymptomatic at time of evaluation and re-evaluation. Differential Diagnosis Differential Diagnosis: COVID, RSV influenza, pulmonary embolism, pneumonia, pleurisy, DVT, popliteal cyst, pneumothorax, ACS Vital Signs Vital Signs: Vital Signs Temperature 97.9 F 11/18/24 10:11 Pulse Rate 77 11/18/24 10:11 Respiratory Rate 18 11/18/24 10:11 Blood Pressure 152/85 H 11/18/24 10:11 Pulse Oximetry 100 11/18/24 10:11 Oxygen Delivery Room Air 11/18/24 10:11 Temperature 97.9 F 11/18/24 10:11 Pulse Rate 87 11/18/24 17:24 Respiratory Rate 20 11/18/24 17:24 Blood Pressure 154/94 H 11/18/24 17:24 Pulse Oximetry 100 11/18/24 17:24 Oxygen Delivery Room Air 11/18/24 11:44 Lab Data Lab results reviewed: Yes I reviewed the patient's lab results. 11/18/24 10:20 11/18/24 10:20 Labs: Lab Results 11/18/24 11/18/24 11/18/24 Range/Units 10:20 13:37 15:02 WBC 7.6 (4.5-10.0) K/mm3 RBC 4.31 (4.2-5.4) M/mm3 Hgb 11.4 L (12.0-15.0) g/dL Hct 36.5 L (37.0-47.0) % MCV 84.7 (80-100) fl MCH 26.5 (26-34) pg MCHC 31.2 L (32-36) g/dl RDW 15.3 H (11.5-14.5) % Plt Count 340 (150-375) k/mm3 MPV 9.2 (7.4-10.4) fl Immature Gran % (Auto) 0.3 (0-0.5) % Neut % (Auto) 59.0 (45.5-73.1) % Lymph % (Auto) 28.8 (18.3-44.2) % [place] % (Auto) 6.7 (2.6-8.5) % Eos % (Auto) 4.4 (0-4.4) % Baso % (Auto) 0.8 (0.2-1.2) % Lymph # (Auto) 2.18 (0.9-3.2) K/mm3 [place] # (Auto) 0.5 (0.1-0.6) K/mm3 Eos # (Auto) 0.3 (0-0.3) K/mm3 Baso # (Auto) 0.1 (0.0-0.1) K/mm3 Abs Immat Gran (auto) 0.02 (0.00-0.031) K/mm3 Absolute Neuts (auto) 4.5 (1.3-6.7) K/mm3 Absolute Nucleated RBC 0.000 (0.0-0.012) K/mm3 Nucleated RBC % 0.0 (0.0-0.2) % PT 13.2 (11.1-14.7) Seconds INR 1.0 APTT 27.0 (22.3-36.8) Seconds D-Dimer 2.59 H (<0.48) ug/mL Sodium 136 L (137-145) mmol/L Potassium 4.3 (3.4-5.0) mmol/L Chloride 106 (98-107) mmol/L Carbon Dioxide 22 (22-30) mmol/L Anion Gap 8 (4-12) mmol/L BUN 17 (7-17) mg/dL Creatinine 0.88 (0.7-1.0) mg/dL Estim Creat Clear Calc 80 ml/min Estimated GFR > 60 (59 - ) Glucose 96 (65-110) mg/dL Calcium 8.7 (8.4-10.2) mg/dL Total Bilirubin 0.5 (0.2-1.3) mg/dL AST 29 (14-36) U/L ALT 19 (6-35) U/L Alkaline Phosphatase 96 (38-126) U/L Troponin I < 0.012 < 0.012 (0.000-0.034) ng/mL Total Protein 7.8 (6.3-8.2) g/dL Albumin 4.2 (3.5-5.1) g/dL Lipase 88 (23-300) U/L 11/18/24 Range/Units 15:03 WBC (4.5-10.0) K/mm3 RBC (4.2-5.4) M/mm3 Hgb (12.0-15.0) g/dL Hct (37.0-47.0) % MCV (80-100) fl MCH (26-34) pg MCHC (32-36) g/dl RDW (11.5-14.5) % Plt Count (150-375) k/mm3 MPV (7.4-10.4) fl Immature Gran % (Auto) (0-0.5) % Neut % (Auto) (45.5-73.1) % Lymph % (Auto) (18.3-44.2) % [place] % (Auto) (2.6-8.5) % Eos % (Auto) (0-4.4) % Baso % (Auto) (0.2-1.2) % Lymph # (Auto) (0.9-3.2) K/mm3 [place] # (Auto) (0.1-0.6) K/mm3 Eos # (Auto) (0-0.3) K/mm3 Baso # (Auto) (0.0-0.1) K/mm3 Abs Immat Gran (auto) (0.00-0.031) K/mm3 Absolute Neuts (auto) (1.3-6.7) K/mm3 Absolute Nucleated RBC (0.0-0.012) K/mm3 Nucleated RBC % (0.0-0.2) % PT (11.1-14.7) Seconds INR APTT (22.3-36.8) Seconds D-Dimer (<0.48) ug/mL Sodium (137-145) mmol/L Potassium (3.4-5.0) mmol/L Chloride (98-107) mmol/L Carbon Dioxide (22-30) mmol/L Anion Gap (4-12) mmol/L BUN (7-17) mg/dL Creatinine (0.7-1.0) mg/dL Estim Creat Clear Calc ml/min Estimated GFR (59 - ) Glucose (65-110) mg/dL Calcium (8.4-10.2) mg/dL Total Bilirubin (0.2-1.3) mg/dL AST (14-36) U/L ALT (6-35) U/L Alkaline Phosphatase (38-126) U/L Troponin I < 0.012 (0.000-0.034) ng/mL Total Protein (6.3-8.2) g/dL Albumin (3.5-5.1) g/dL Lipase (23-300) U/L Imaging Data Radiologist's impression: Impressions Chest X-Ray 11/18/24 11:20 IMPRESSION: 1. No acute cardiopulmonary findings. Venous Doppler Study 11/18/24 14:48 Impression: Negative for DVT. Chest CTA 11/18/24 16:41 IMPRESSION: Limited study. No gross pulmonary embolism Discharge Plan Discharge Clinical Impression: Acute leg pain, Chest pain Patient Disposition: Home Condition: Stable Instructions: Antibiotic Form, Chest Pain (ED) Additional Instructions: Ultrasound was negative for DVT. CT scan of the chest showed no evidence of pulmonary embolism. Have close follow-up with primary care physician for additional outpatient cardiac testing. If you have any worsening symptoms then please call or return to the emergency department. Patient Language: Swedish Prescriptions: No Action albuterol sulfate [Ventolin HFA] 90 mcg/actuation HFA aerosol inhaler 2 inh inhalation Q4-6H PRN (Reason: shortness of breath) 90 Days Qty: 8.5 3RF (DME) Aerochamber MV Spacer See Rx Instructions .ROUTE .MEDSUPPLY Qty: 1 0RF Rx Instructions: As directed sertraline 50 mg tablet 100 mg PO DAILY levothyroxine [Synthroid] 50 mcg tablet 50 mcg PO DAILY Qty: 90 3RF Contrave 8-90 mg tablet extended release 1 tablet PO QAM Qty: 30 4RF norethindrone-e.estradiol-iron [Loestrin Fe 03/20 (28-Day)] 1 mg-20 mcg (21)/75 mg (7) tablet 1 tablet PO DAILY cetirizine [Zyrtec] 10 mg tablet 10 mg PO DAILY lisinopril 10 mg tablet See Rx Instructions .ROUTE .COMPLEX Qty: 90 3RF Dose Instruction: TAKE 1 TABLET BY MOUTH DAILY Rx Instructions: TAKE 1 TABLET BY MOUTH DAILY Follow-up/Referrals: Sandor Ramires APRN [Primary Care Provider, Internal Medicine] Quality HEART score for chest pain patients History: slightly suspicious ECG: normal Age: > 45 and < 65 years Risk factors: 1 or 2 risk factors Troponin: < or = to 1x normal limit Heart score: 2
[2024-11-18 14:09] LABS: Troponin I < 0.012 ng/mL (0.000-0.034)
[2024-11-18] MEDS: KETOROLAC 15 MG/ML VIAL (*BKC) IV PUSH (14:18)
[2024-11-18 15:06] VITALS: BP 130/84; PULSE 94; RESP 16; O2SAT 98
[2024-11-18 15:30] LABS: Troponin I < 0.012 ng/mL (0.000-0.034)
[2024-11-18 16:53] VITALS: BP 152/90; PULSE 85; RESP 14; O2SAT 100
[2024-11-18 17:24] VITALS: BP 154/94; PULSE 87; RESP 20; O2SAT 100
== END 2024-11-18 17:27 | disposition home or self-care (01) ==
PROVIDERS: Emergency Provider Emergency Medicine; PCP Nurse Practitioner
DX: R07.9 Chest pain, unspecified (principal); M25.561 Pain in right knee
CPT/HCPCS: 36415; 71046; 71275; 80053; 83690; 84484; 85025; 85380; 85610; 85730; 93005; 93971; 96374; 99284; A9270; J1885; Q9967